=== PATIENT | male | born 1970 | race Caucasian/White ===

== ENCOUNTER → 2018-10-06 13:44 | Outpatient (CLI) | payer MEDICAID, SELFPAY ==
[2018-10-06 17:52] LABS: Alanine Aminotransferase 386 U/L (12-78); Albumin Level 3.2 gm/dL (3.4-5.0); Alkaline Phosphatase 438 U/L (46-116); Bilirubin,Direct 8.1 mg/dL (0.0-0.2); Bilirubin,Indirect 2.4 mg/dL (0.0-0.9); Bilirubin,Total 10.5 mg/dL (0.2-1.0); Total Protein,Serum 6.9 gm/dL (6.4-8.2)
[2018-10-06 18:35] LABS: Aspartate Amino Transferase 190 U/L (15-37)
== END ==
PROVIDERS: Visit Provider Nurse Practitioner Family
DX: R10.84 Generalized abdominal pain (principal); R93.3 Abnormal findings on diagnostic imaging of other parts of digestive tract; R19.7 Diarrhea, unspecified; R07.89 Other chest pain
CPT/HCPCS: 36415; 80076

== ENCOUNTER → 2018-10-06 14:51 | Outpatient (POV) | payer MEDICAID, SELFPAY | PROVIDERS: PCP Nurse Practitioner Family; Visit Provider Nurse Practitioner Family | DX: Z00.00 Encounter for general adult medical examination without abnormal findings (principal) ==

== ENCOUNTER → 2018-10-10 09:22 | Outpatient (CLI) | payer MEDICAID, SELFPAY ==
--- NOTE | 2018-10-10 09:49 | MR_ITS ---
PROCEDURE: MR ABDOMEN WO/W CON CLINICAL INDICATION: ABNORMAL FINDINGS ON DIAGNOSTIC IMAGING-CT Epigastric pain, jaundice, abdominal pain radiating in the left upper quadrant abnormal CT scan COMPARISON: CT ABDOMEN PELVIS W CON from 10/03/2018 TECHNIQUE: Routine multiplanar multi echo sequences are performed without and with gadolinium enhancement. MRCP images also performed. FINDINGS: There is intra and extrahepatic biliary ductal dilatation. No focal hepatic lesions are evident. There are multiple areas of signal void within the gallbladder consistent with gallstones measuring up to 17 mm. The spleen, adrenal glands, and kidneys have an unremarkable appearance. Pre and post enhanced images are obtained. There is some initial enhancement of the right hepatic lobe anteriorly probably related to differential blood flow. This has an unremarkable appearance on additional sequences. There is no enhancing mass evident. MRCP images show prominent intra and extra hepatic biliary tree. The common bile duct measures up to 9 mm. There is abrupt termination of the common bile duct distally suspicious for a common duct stone. This is proximal to the ampulla. No pancreatic ductal dilatation is evident. There is some asymmetric prominence of the biliary radicles on the left compared to the right. There is suggestion of narrowing of the proximal aspect of both right and left biliary radicles. No definite soft tissue mass evident at this region however. There is some questionable beading at this area. IMPRESSION: 1. Dilated intra and extrahepatic biliary radicles with abrupt termination of the distal common bile duct proximal to the pancreatic duct suspicious for a common duct stone. 2. There is asymmetric prominence of the biliary radicles on the left. The MRCP raises the question of strictures at both the proximal aspect of right and left biliary ducts. A definite mass is not identified at this region. Follow-up however is strongly. And early cholangiocarcinoma or primary sclerosing cholangitis is considered in the differential diagnosis. 3. Cholelithiasis Dictated by: Akil Hernández MD 10/13/2018 05:36 Signed by: <Electronically signed by Akil Hernández MD in [place]> 10/14/2018 19:53
== END ==
PROVIDERS: PCP Nurse Practitioner Family; Visit Provider Internal Medicine Gastroenterology
DX: R93.3 Abnormal findings on diagnostic imaging of other parts of digestive tract (principal); R10.13 Epigastric pain; R17 Unspecified jaundice
CPT/HCPCS: 74183; 76376; A9576

== ENCOUNTER → 2018-10-27 14:38 | Outpatient (POV) | payer MEDICAID, SELFPAY ==
[2018-10-27 16:45] LABS: Basophils % 0.1 % (0.1-2.0); Eosinophils # 0.1 K/mm3 (0.0-0.4); Eosinophils % 0.6 % (0.1-12.0); Hematocrit 42.8 % (42.0-52.0); Hemoglobin 14.5 g/dL (14.1-18.0); Lymphocytes # 1.5 K/mm3 (0.7-4.5); Lymphocytes % 12.8 % (10-50); Mean Corpuscular HGB Conc 33.8 g/dL (31.8-35.4); Mean Corpuscular Hemoglobin 29.1 pg (27.0-31.2); Mean Platelet Volume 6.8 fl (7.4-10.4); Monocytes # 0.5 K/mm3 (0.1-1.0); Neutrophils # 9.4 K/mm3 (1.8-7.8); Neutrophils % 82.4 % (37.0-80.0); Platelet Count 384 K/mm3 (142-424); Red Blood Count 4.98 M/mm3 (4.60-6.20); Red Cell Distribution Width 15.5 % (11.5-17.5); White Blood Count 11.4 K/mm3 (4.8-10.8)
[2018-10-27 16:47] LABS: Alanine Aminotransferase 33 U/L (12-78); Albumin Level 3.6 gm/dL (3.4-5.0); Albumin/Globulin Ratio 0.9 (1.1-1.8); Alkaline Phosphatase 109 U/L (46-116); Amylase 53 U/L (25-115); Anion Gap 11.8 mEq/L (5-15); Aspartate Amino Transferase 17 U/L (15-37); Bilirubin,Total 0.8 mg/dL (0.2-1.0); Blood Urea Nitrogen 21 mg/dL (7-18); Carbon Dioxide 29 mmol/L (21.0-32.0); Chloride 103 mmol/L (98-107); Creatinine,Serum 1.03 mg/dL (0.70-1.30); Estimated Glomerular Filt Rate 76 ml/min (>60); GFR (African American) 92 ML/MIN (>60); Glucose 110 mg/dL (74-106); Lipase 54 u/L (73-393); Potassium 4.8 mmoL/L (3.5-5.1); Sodium 139 mmol/L (136-145); Total Protein,Serum 7.6 gm/dL (6.4-8.2)
== END ==
PROVIDERS: PCP Nurse Practitioner Family; Visit Provider Nurse Practitioner Family
DX: K83.1 Obstruction of bile duct (principal); K80.50 Calculus of bile duct without cholangitis or cholecystitis without obstruction; R94.5 Abnormal results of liver function studies
CPT/HCPCS: 36415; 80053; 82150; 83690; 85025

== ENCOUNTER 2019-09-05 20:37 | Emergency (ER) | payer OTHER, SELFPAY ==
[2019-09-05 20:48] VITALS: BMI 23.5
--- NOTE | 2019-09-05 20:49 | XR_ITS ---
PROCEDURE: XR KNEE LT 3V XR TIBIA FIBULA LT 2V from 09/05/2019 Patient Age:48Y CLINICAL INDICATION: PAIN Pain and swelling from injury 1 month ago. Patient tried to catch himself while falling and put pressure on has leg. Pain persist. Fractured lower leg 25 years ago COMPARISON: [id number] XR knee LT 3V from 11/02/2017 FINDINGS: LEFT KNEE3 VIEW: Nonweightbearing AP, lateral, oblique No definitive or discrete acute fracture. No dislocation.-There is a generous joint effusion at suprapatellar bursa. Bones well mineralized A joint spaces fairly well maintained with only borderline narrowing at the medial compartment on this nonweightbearing study I would question there may be some developing subchondral cystic changes relative lucency beneath the lateral tibial plateau and tibial spines, on more so than on October 2017. Equivocal observation but given persistent pain, large joint effusion would suggest low threshold for pursuing MRI left knee to evaluate, for possible occult fracture/internal derangement or other features. Patella and patellofemoral joint intact on these views The joint spaces are well-preserved. No significant degenerative/arthritic changes. No erosive changes evident. LEFT TIB FIB-2VIEW Old healed fracture with deformity mid shaft fibula. There is solid bony union but lateral offset and slight over-ride at this old healed fibular fracture Advanced healing is also seen at spiral fracture of the distal tibial shaft. Solid healing along this spiral fracture with slight override and 6 mm lateral offset of the distal tibia. Other likely some mild degenerative changes at the ankle mortise. Lateral images left knee again demonstrate the joint effusion and knee. Overall appearance is unchanged since ankle study of from April 2012. Again a small focal irregularity of cortex anterior aspect distal tibia noted from the old healed fracture. Unchanged since prior studies IMPRESSION: LEFT KNEE. . No acute fracture evident-but there is a prominent joint effusion at suprapatellar bursa.. . Question subtle vague relative lucency beneath lateral tibial plateau & tibial spines noted compared to old study-thisof questionable significance. Possible developing generous subchondral cyst ? *.. Given current large effusion, along with 1 month persistent pain,, history of trauma and other above observations--MRI left knee may indeed be of warranted and of benefit to further evaluate this patient. LEFT TIBIA/FIBULA . Old healed fractures mid shaft of fibula and distal shaft of tibia. stable since previous 2013 ankle study . Arthritic changes developing at left ankle Dictated by: Ezekiel Ingram MD 09/05/2019 23:08 Electronically signed by Ezekiel Ingram MD in [place] 09/05/2019 23:08
[2019-09-05 21:03] VITALS: BP 154/80; PULSE 82; RESP 20; O2SAT 97; BMI 23.5
--- NOTE | 2019-09-05 21:28 | HMH.EDUTC ---
[facility] [place] Disposition Clinical Impression: Left knee pain Qualifiers: Chronicity: chronic Qualified Code(s): M25.562 - Pain in left knee Disposition: Home, Self-Care Condition on Discharge: Good Instructions: How to Use Crutches, DI for Knee Pain, How to Use a Knee Immobilizer Additional Instructions: Rest the extremity, Elevate the extremity as tolerated while you are resting. Wear the knee immobilizer and use the crutches to rest your knee and leg. Take ibuprofen for pain. I sent in a prescription to your pharmacy. Follow up with Dr. Sanabria (orthopedics). I put in a referral but you need to call her office and schedule an appointment. Follow up with your regular doctor. GO TO THE ER FOR ANY WORSENING SYMPTOMS Prescriptions: Ibuprofen [Ibuprofen 600mg Tablet] 600 mg PO Q6HP PRN #30 tab PRN Reason: Mild Pain Transmission Status: Received by [id number] Referrals: Norman Ayala [Primary Care Provider] - Socorro Sanabria MD [Physician] - Forms: Work/School Release Time of Disposition: 21:31 Medical Decision Making - Medical Records Medical records reviewed: No: I reviewed the patient's medical records. - Reji Inquiry Pt receiving controlled substance: No Vital Signs: 09/05/19 21:03 09/05/19 21:30 Temperature 98.0 F Pulse Rate 82 Pulse Rate [Left Brachial] 82 Respiratory Rate 20 20 Blood Pressure 154/80 H Blood Pressure [Left Arm] 154/80 H Blood Pressure Mean [Left Arm] 104 Blood Pressure Source [Left Arm] Automatic Cuff Blood Pressure Position [Left Arm] Sitting 02 Sat by Pulse Oximetry 97 Oxygen Delivery Method Room Air - Radiology Data #1 Image(s): Knee, Tib/Fib Image Reviewed: Yes I reviewed the patient's radiology image, Yes I have reviewed radiologist's interpretation Preliminary Findings: Abnormal PROCEDURE: XR KNEE LT 3V XR TIBIA FIBULA LT 2V from 09/05/2019 Referring Doctor:SHELLI Patient Age:48Y CLINICAL INDICATION: PAIN Pain and swelling from injury 1 month ago. Patient tried to catch himself while falling and put pressure on has leg. Pain persist. Fractured lower leg 25 years ago COMPARISON: [id number] XR knee LT 3V from 11/02/2017 FINDINGS: LEFT KNEE3 VIEW: Nonweightbearing AP, lateral, oblique No definitive or discrete acute fracture. No dislocation.-There is a generous joint effusion at suprapatellar bursa. Bones well mineralized A joint spaces fairly well maintained with only borderline narrowing at the medial compartment on this nonweightbearing study I would question there may be some developing subchondral cystic changes relative lucency beneath the lateral tibial plateau and tibial spines, on more so than on October 2017. Equivocal observation but given persistent pain, large joint effusion would suggest low threshold for pursuing MRI left knee to evaluate, for possible occult fracture/internal derangement or other features. Patella and patellofemoral joint intact on these views The joint spaces are well-preserved. No significant degenerative/arthritic changes. No erosive changes evident. LEFT TIB FIB-2VIEW Old healed fracture with deformity mid shaft fibula. There is solid bony union but lateral offset and slight over-ride at this old healed fibular fracture Advanced healing is also seen at spiral fracture of the distal tibial shaft. Solid healing along this spiral fracture with slight override and 6 mm lateral offset of the distal tibia. Other likely some mild degenerative changes at the ankle mortise. Lateral images left knee again demonstrate the joint effusion and knee. Overall appearance is unchanged since ankle study of from April 2012. Again a small focal irregularity of cortex anterior aspect distal tibia noted from the old healed fracture. Unchanged since prior studies IMPRESSION: LEFT KNEE. . No acute fracture evident-but there is a prominent joint effusion at suprapatellar
[2019-09-05 21:30] VITALS: BP 154/80; PULSE 82; RESP 20; TEMP 36.7; O2SAT 97
== END 2019-09-05 21:35 | disposition home or self-care (01) ==
PROVIDERS: Emergency Provider Nurse Practitioner Family; PCP Family Medicine
DX: M25.562 Pain in left knee (principal); W18.09XA Striking against other object with subsequent fall, initial encounter; F17.210 Nicotine dependence, cigarettes, uncomplicated
CPT/HCPCS: 29505; 73562; 73590; 99202

== ENCOUNTER → 2019-09-16 08:35 | Outpatient (CLI) | payer OTHER, SELFPAY ==
--- NOTE | 2019-09-16 08:43 | XR_ITS ---
PROCEDURE: XR KNEE LT 4V CLINICAL INDICATION: knee pain A fall 2 months ago. COMPARISON: [id number] XR knee LT 3V from 11/02/2017 XR KNEE LT 3V from 09/05/2019 FINDINGS: No fracture or dislocation. No lytic or blastic change. There is bony demineralization.. There is mild/moderate degenerative arthrosis of the medial, lateral femorotibial and patellofemoral compartments demonstrated with joint space narrowing. The patella is seen at an appropriate height. Other findings:Redemonstrated moderate joint effusion with increased suprapatellar soft tissue density IMPRESSION: 1. Negative for acute fracture or dislocation. 2. Periarticular bony demineralization. Mild/moderate tricompartment knee osteoarthrosis. 3. Moderate volume joint effusion. Dictated by: Sarah Bourne 09/16/2019 09:42 Electronically signed by Sarah Bourne in [place] 09/16/2019 09:42
== END ==
PROVIDERS: PCP Family Medicine; Visit Provider Orthopaedic Surgery
DX: M25.562 Pain in left knee (principal)
CPT/HCPCS: 73564

== ENCOUNTER 2019-10-05 13:38 | Outpatient (RCR) | payer OTHER, SELFPAY ==
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
== END 2019-10-05 13:45 | disposition home or self-care (01) ==
LOC: PT 13:38
PROVIDERS: Visit Provider Orthopaedic Surgery
DX: M25.562 Pain in left knee (principal)
CPT/HCPCS: 97010; 97014; 97110; 97163; G0283

== ENCOUNTER → 2019-11-02 08:39 | Outpatient (CLI) | payer OTHER, SELFPAY ==
--- NOTE | 2019-11-02 08:40 | MR_ITS ---
PROCEDURE: MR KNEE LT WO CON CLINICAL INDICATION: left knee pain Pt. c/o left latral knee pain, instability and swelling with no known trauma or injury. COMPARISON: CR [id number] XR knee LT 3V from 11/02/2017 CR XR TIBIA FIBULA LT 2V from 09/05/2019 CR XR KNEE LT 4V from 09/16/2019 TECHNIQUE: Routine multiplanar multi echo sequences are performed without gadolinium enhancement. FINDINGS: The cruciate ligaments appear intact. The collateral ligaments also appear intact. The no evidence of meniscal tear. There is a moderate size knee joint effusion mainly in the suprapatellar region with some internal synechiae. Tricompartmental osteoarthritic changes are present. There are complex cystic appearing lesions in the proximal aspect of the tibia. There are at least 4 sub chondral cystic lesions in the medial aspect of the proximal tibia the largest of which measures 8 mm. These have a simple cystic appearance. In the proximal tibia posteriorly and centrally there is a 2.5 x 1.6 cm complex lesion which is isoechoic on T1 with heterogeneous increased T2 signal. In addition, there is a simple appearing cystic lesion in the proximal tibia posteriorly. No soft tissue component evident of the cystic lesions. IMPRESSION: 1. No internal derangement apparent. 2. Tricompartmental osteoarthritic changes with knee joint effusion 3. Multiple cystic lesions of the proximal tibia. Most of these are likely related to subchondral cyst. There is however complex lesion posteriorly with complex heterogeneous T2 signal and in retrospect represents a lucent lesion on the radiograph which has developed since 11/02/2017. Recommend CT scan to determine if there is internal calcific matrix of this lesion. A limited bone scan may also provide further evaluation with SPECT imaging to evaluate for activity of this lesion.. Dictated by: Akil Hernández MD 11/04/2019 09:15 Akil Hernández MD in [place] 11/04/2019 09:15
== END ==
PROVIDERS: PCP Family Medicine; Visit Provider Orthopaedic Surgery
DX: M25.562 Pain in left knee (principal)
CPT/HCPCS: 73721

== ENCOUNTER 2020-12-01 20:03 | Emergency (ER) | payer OTHER, SELFPAY ==
[2020-12-01 20:10] VITALS: BP 156/81; PULSE 69; RESP 18; TEMP 36.7; O2SAT 96; BMI 25.1
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
[2020-12-01 21:02] VITALS: BP 124/76; PULSE 60; RESP 18; TEMP 36.6; O2SAT 96; BMI 25.1
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
[2020-12-01 22:37] VITALS: BP 135/80; PULSE 80; RESP 18; TEMP 36.7; O2SAT 99
== END 2020-12-01 22:39 | disposition home or self-care (01) ==
LOC: UTC 20:50 → ER 20:57
PROVIDERS: Emergency Provider Family Medicine; PCP Family Medicine
DX: S05.91XA Unspecified injury of right eye and orbit, initial encounter (principal); W22.8XXA Striking against or struck by other objects, initial encounter; Y92.89 Other specified places as the place of occurrence of the external cause; F17.210 Nicotine dependence, cigarettes, uncomplicated; Z88.5 Allergy status to narcotic agent
CPT/HCPCS: 99281

== ENCOUNTER 2022-11-07 19:49 | Emergency (ER) | payer OTHER, SELFPAY ==
[2022-11-07 19:51] VITALS: BP 160/104; PULSE 79; RESP 19; TEMP 36.8; O2SAT 98; BMI 25.1
[2022-11-07 20:00] VITALS: BP 157/109; PULSE 72; RESP 20; O2SAT 97
--- NOTE | 2022-11-07 20:23 | XR_ITS ---
PROCEDURE INFORMATION: Exam: XR Right Tibia and Fibula Exam date and time: 11/07/2022 8:24 PM Age: 52 years old Clinical indication: Lower leg; Right; Patient HX: Pain after tripping; Additional info: Distal tibia pain TECHNIQUE: Imaging protocol: Radiologic exam of the right tibia and fibula. Views: 2 views. COMPARISON: CR XR FOOT RT MIN 3V 11/07/2022 8:22 PM FINDINGS: Bones/joints: No acute fracture or malalignment. Mild calcaneal and patellar enthesopathy. 2.1 cm benign-appearing distal tibia interosseous cystic lesion. No knee joint effusion. Soft tissues: Normal. IMPRESSION: No acute osseous findings.
--- NOTE | 2022-11-07 20:23 | XR_ITS ---
PROCEDURE INFORMATION: Exam: XR Right Ankle Exam date and time: 11/07/2022 8:24 PM Age: 52 years old Clinical indication: Ankle; Right; Patient HX: Pain after tripping; Additional info: Distal tibia pain TECHNIQUE: Imaging protocol: Radiologic exam of the right ankle. Views: 3 or more views. COMPARISON: CR XR TIBIA FIBULA RT 2V 11/07/2022 8:24 PM FINDINGS: Bones/joints: No acute fracture or malalignment. Mild calcaneal enthesopathy. 2.1 cm benign-appearing distal tibia interosseous cystic lesion. Soft tissues: Normal. IMPRESSION: No acute osseous findings.
--- NOTE | 2022-11-07 20:23 | XR_ITS ---
PROCEDURE INFORMATION: Exam: XR Right Foot Exam date and time: 11/07/2022 8:22 PM Age: 52 years old Clinical indication: Pain; Foot; Right; Additional info: Distal tibia pain TECHNIQUE: Imaging protocol: Radiologic exam of the right foot. Views: 3 or more views. COMPARISON: No relevant prior studies available. FINDINGS: Bones/joints: No acute fracture or malalignment. Mild osteoarthritis. Mild calcaneal enthesopathy. Soft tissues: Normal. IMPRESSION: No acute osseous findings.
--- NOTE | 2022-11-07 20:31 | HMH.EDGENADL ---
Discharge Plan Disposition Patient Disposition: Home, Self-Care Chief Complaint: Extremity Injury, Lower Prescriptions Prescriptions: No Action buprenorphine-naloxone [Suboxone] 8-2 mg film 3 film sublingual DAILY Patient Comments: PLACE 3 STRIPS UNDER THE TONGUE DAILY Rinvoq 15 mg tablet extended release 24 hr 15 mg PO DAILY Referrals Follow up/Referrals: Provider,Referral, [Primary Care Provider] - See instructions Activity Restrictions/Add. Instructions Additional Instructions/Restrictions: Call your family doctor to establish care for this visit to the emergency department and schedule follow-up within 48 hours to ensure improvement. If you have any worsening of your condition or any other concerning signs or symptoms, return to the emergency department or your primary care doctor for further evaluation. Take Tylenol 1000 mg every 6 hours (4 times daily) and ibuprofen 400 mg every 6 hours (4 times daily) as needed with food and water to prevent GI upset and kidney damage. Clinical Impressions Clinical Impression: Right ankle sprain Qualifiers: Encounter type: initial encounter Involved ligament of ankle: anterior talofibular ligament Qualified Code(s): S93.491A - Sprain of other ligament of right ankle, initial encounter Discharge ED Provider: Sen Aldrich General Adult [facility] General Chief complaint: Extremity Injury, Lower Stated complaint: AO 11/02, right ankle pain/swelling Time Seen by Provider: 11/07/22 19:54 Mode of Arrival: Wheelchair Source of Information: Patient Limitations: No Limitations Description of Symptoms (Recalled from ER Triage Doc. by RN): 52 M presents with right medial ankle pain after tripping over a rubber mat on and falling. Patient reports history of RA and takes chronic pain medication daily; however, is still having pain to this ankle with decreased ability to bare weight. History of Present Illness HPI narrative: Is a 52-year-old male with history of rheumatoid arthritis presenting with right ankle pain. Patient states almost a week prior to arrival, he twisted his ankle while walking outside. Because he was able to bear weight, did not think anything of it. Started hurting progressively worse throughout the past couple of days. Came to the ER for further evaluation. Denies fevers, chills, red, hot, swollen joints, numbness, tingling, weakness, or any other concerns. Took NSAID as well as steroid thinking it may have been an RA flare. Pain is mild, does not radiate. Related Data Home Medications Medication Instructions Recorded Confirmed buprenorphine 8 mg-naloxone 2 mg 3 film sublingual DAILY Rheumatoid 11/07/22 11/07/22 sublingual film (Suboxone) Arthritis upadacitinib 15 mg tablet,extended 15 mg PO DAILY Rheumatoid Arthritis 11/07/22 11/07/22 release 24 hr (Rinvoq) Allergies Allergy/AdvReac Type Severity Reaction Status Date / Time No Known Allergies Allergy Verified 11/07/22 20:18 [facility] Disclaimer: The information contained in this section may have been updated after the patient was seen, as this information can be updated by other users. Medical History (Updated 11/07/22 @ 21:02 by Sen Aldrich MD) Dysfunction of sphincter of Oddi Rheumatoid arthritis, unspecified Surgical History (Updated 11/07/22 @ 20:17 by Elie Paiz RN) No history of previous surgery Family History (Updated 11/07/22 @ 20:17 by Elie Paiz RN) Other No significant family history Social History (Updated 11/07/22 @ 20:17 by Elie Paiz RN) Smoking Status: Current every day smoker tobacco type: cigarettes packs per day: 1 alcohol intake: never current occupational status: employed Travel in the last 8 weeks: None ROS Obtained: Yes All systems reviewed & no additional complaints except as documented Physical Exam General General appearance: alert, in no apparent distress and other ( ) Head Head exam: at
[2022-11-07 21:08] VITALS: BP 155/87; PULSE 78; RESP 18; O2SAT 98
[2022-11-07 21:10] VITALS: BP 155/87; PULSE 60; RESP 17; TEMP 36.8; O2SAT 99
== END 2022-11-07 21:10 | disposition home or self-care (01) ==
PROVIDERS: Emergency Provider Emergency Medicine
DX: S93.491A Sprain of other ligament of right ankle, initial encounter (principal); M06.9 Rheumatoid arthritis, unspecified; W01.0XXA Fall on same level from slipping, tripping and stumbling without subsequent striking against object, initial encounter; F17.210 Nicotine dependence, cigarettes, uncomplicated
CPT/HCPCS: 73590; 73610; 73630; 99284

== ENCOUNTER 2022-12-14 12:46 | Emergency (ER) | payer OTHER, SELFPAY ==
[2022-12-14 12:55] VITALS: BP 153/95; PULSE 55; RESP 19; TEMP 36.7; O2SAT 100; BMI 25.0
--- NOTE | 2022-12-14 13:10 | EXP.UTC ---
Discharge Plan Disposition Patient Disposition: Home, Self-Care Prescriptions Prescriptions: New meclizine 25 mg tablet 25 mg PO TID PRN (Reason: dizziness) Qty: 15 0RF No Action buprenorphine-naloxone [Suboxone] 8-2 mg film 3 film sublingual DAILY Patient Comments: PLACE 3 STRIPS UNDER THE TONGUE DAILY Rinvoq 15 mg tablet extended release 24 hr 15 mg PO DAILY Referrals Follow up/Referrals: Smith Melton, [Staff Physician] - See instructions Norman Ayala MD [Primary Care Provider] - See instructions Activity Restrictions/Add. Instructions Additional Instructions/Restrictions: At this time it was felt you are safe to be discharged home. If new or worsening symptoms please do not hesitate to return the emergency department. If symptoms persist please follow-up with your family doctor as you are able. Please call and schedule appoint with Dr. Melton for follow-up and possible referral to vestibular rehab. Please take your medication as prescribed. If you want to look up the maneuver that was performed today the title of it is Gomez maneuver and videos of this can be found on YouTube. Clinical Impressions Clinical Impression: Benign paroxysmal positional vertigo Instructions Patient Instructions: Vertigo Discharge ED Provider: Jodi Cantu [facility] General Chief complaint: Dizziness Stated complaint: DIZZY Mode of Arrival: Ambulatory Source of Information: Patient Limitations: No Limitations Time Seen by Provider: 12/14/22 13:10 Description of Symptoms (Recalled from Triage Doc. by RN): PATIENT REPORTS DIZZINES AND FEELING LIGHT-HEADED THAT HAS BEEN GOING ON FOR THE LAST 2 DAYS. DENIES ANY HISTORY OF DIZZY EPISODES. HE ALSO REPORTS FOR THE LAST FEW NIGHTS HE HAS BEEN HAVING A HEAVY FEELING IN HIS NECK WHEN HE IS LYING DOWN AND WAKES UP SWEATING AND FEELING HUNG OVER . HEENT Symptoms (Recalled from RN notes): Yes Resp Symptoms (Recalled from RN notes): No Skin Symptoms (Recalled from RN notes): No MS Symptoms (Recalled from RN notes): No Functional Status (Recalled from RN notes): WNL History of Present Illness Provider Complaint: Patient states that a couple days ago he was under a car working and laid on his left side and started having dizziness and when he got out from under the car he had to sit down feeling like he was going to fall over, States that he has had several dizzy spells since then some with movement and some while sitting still in his vehicle, States that he is not dizzy right now but his vision is blurry and he doesnt feel right in his head states that he has never had dizziness/vertigo before States that also he has been having pain/pressure like feeling in the back of his neck when he tries to lay down like he cannot put his head down and lays his arm on his forehead to hold his head down and when he wakes up he is sweaty and feels like he has a hangover for a few hours and recently had several spots removed from his head and side of his nose Related Data Home Medications Medication Instructions Recorded Confirmed buprenorphine 8 mg-naloxone 2 mg 3 film sublingual DAILY Rheumatoid 11/07/22 12/14/22 sublingual film (Suboxone) Arthritis upadacitinib 15 mg tablet,extended 15 mg PO DAILY Rheumatoid Arthritis 11/07/22 12/14/22 release 24 hr (Rinvoq) Previous Rx's Medication Instructions Recorded meclizine 25 mg tablet 25 mg PO TID PRN dizziness #15 tabs 12/14/22 Allergies Allergy/AdvReac Type Severity Reaction Status Date / Time No Known Allergies Allergy Verified 11/07/22 20:18 Worker's Comp Is this a Worker's Comp case?: No [facility] Disclaimer: The information contained in this section may have been updated after the patient was seen, as this information can be updated by other users. Medical History (Updated 12/14/22 @ 13:51 by Ozzie Jones MD) Dysfunction of sphincter of Oddi Rheumatoid arthritis, unspecified Surgical Hi
[2022-12-14 13:11] VITALS: BP 144/88; BP 153/95; PULSE 55; PULSE 71
--- NOTE | 2022-12-14 13:19 | PC.NURSE ---
PATIENT SENT TO ER PER Ekaterina REEVES APRN FOR FURTHER EVALUATION. REPORT GIVEN TO Donal GIRALDO RN BY Ekaterina REEVES APRN. PATIENT TRANSPORTED TO ER VIA WHEELCHAIR WITH [facility] STAFF ASSIST AT THIS TIME
[2022-12-14 13:25] VITALS: BP 150/76; PULSE 58; RESP 18; TEMP 36.7; O2SAT 100; BMI 24.3
--- NOTE | 2022-12-14 13:52 | HMH.EDGENADL ---
Discharge Plan Disposition Patient Disposition: Home, Self-Care Prescriptions Prescriptions: New meclizine 25 mg tablet 25 mg PO TID PRN (Reason: dizziness) Qty: 15 0RF No Action buprenorphine-naloxone [Suboxone] 8-2 mg film 3 film sublingual DAILY Patient Comments: PLACE 3 STRIPS UNDER THE TONGUE DAILY Rinvoq 15 mg tablet extended release 24 hr 15 mg PO DAILY Referrals Follow up/Referrals: Smith Melton, [Staff Physician] - See instructions Norman Ayala MD [Primary Care Provider] - See instructions Activity Restrictions/Add. Instructions Additional Instructions/Restrictions: At this time it was felt you are safe to be discharged home. If new or worsening symptoms please do not hesitate to return the emergency department. If symptoms persist please follow-up with your family doctor as you are able. Please call and schedule appoint with Dr. Melton for follow-up and possible referral to vestibular rehab. Please take your medication as prescribed. If you want to look up the maneuver that was performed today the title of it is Gomez maneuver and videos of this can be found on YouTube. Clinical Impressions Clinical Impression: Benign paroxysmal positional vertigo Discharge ED Provider: Jodi Cantu General Adult [facility] General Chief complaint: Dizziness Stated complaint: DIZZY Time Seen by Provider: 12/14/22 13:10 Mode of Arrival: Ambulatory Source of Information: Patient Limitations: No Limitations Description of Symptoms (Recalled from ER Triage Doc. by RN): PATIENT REPORTS DIZZINES AND FEELING LIGHT-HEADED THAT HAS BEEN GOING ON FOR THE LAST 2 DAYS. DENIES ANY HISTORY OF DIZZY EPISODES. HE ALSO REPORTS FOR THE LAST FEW NIGHTS HE HAS BEEN HAVING A HEAVY FEELING IN HIS NECK WHEN HE IS LYING DOWN AND WAKES UP SWEATING AND FEELING HUNG OVER . History of Present Illness HPI narrative: Patient is a 52-year-old male with no pertinent past medical history who presents emergency department for evaluation of vertigo. Patient was lying under a truck the last couple of days when he position his head to the left he felt acutely dizzy. He has noticed that when he positions his head to the left he experiences the symptoms. Otherwise he is at his baseline. Denies vision, speech, extremity deficits, difficulty walking, other acute complaints at this time. Related Data Home Medications Medication Instructions Recorded Confirmed buprenorphine 8 mg-naloxone 2 mg 3 film sublingual DAILY Rheumatoid 11/07/22 12/14/22 sublingual film (Suboxone) Arthritis upadacitinib 15 mg tablet,extended 15 mg PO DAILY Rheumatoid Arthritis 11/07/22 12/14/22 release 24 hr (Rinvoq) Previous Rx's Medication Instructions Recorded meclizine 25 mg tablet 25 mg PO TID PRN dizziness #15 tabs 12/14/22 Allergies Allergy/AdvReac Type Severity Reaction Status Date / Time No Known Allergies Allergy Verified 11/07/22 20:18 [facility] Disclaimer: The information contained in this section may have been updated after the patient was seen, as this information can be updated by other users. Medical History (Updated 12/14/22 @ 13:51 by Ozzie Jones MD) Dysfunction of sphincter of Oddi Rheumatoid arthritis, unspecified Surgical History (Updated 11/07/22 @ 20:17 by Elie Paiz RN) No history of previous surgery Family History (Updated 11/07/22 @ 20:17 by Elie Paiz RN) Other No significant family history Social History (Updated 11/07/22 @ 20:17 by Elie Paiz RN) Smoking Status: Current every day smoker tobacco type: cigarettes packs per day: 1 alcohol intake: never current occupational status: employed Travel in the last 8 weeks: None ROS Obtained: Yes Systems reviewed as appropriate & no additional complaints except as documented Physical Exam General General appearance: alert and in no apparent distress Head Head exam: atraumatic and normocephalic Eye Ey
[2022-12-14 14:36] VITALS: BP 143/85; PULSE 58; RESP 20; TEMP 36.9; O2SAT 99
== END 2022-12-14 14:44 | disposition home or self-care (01) ==
LOC: UTC 12:51 → ER 13:12
PROVIDERS: Emergency Provider Nurse Practitioner; PCP Family Medicine
DX: H81.10 Benign paroxysmal vertigo, unspecified ear (principal); F17.210 Nicotine dependence, cigarettes, uncomplicated; M06.9 Rheumatoid arthritis, unspecified
CPT/HCPCS: 99283